=== PATIENT | male | born 1930 | race Caucasian/White ===

== ENCOUNTER 2016-06-14 12:12 | Emergency (ER) | payer OTHER ==
[~2016-06-14] VITALS: Ht 170.2 cm; Wt 82.0 kg
[~2016-06-14 12:12] MED LIST: AMLO5TAB96 PO; DARV PO; GLUCTAB PO; HALC0.25 PO; INDO50CA PO; ZOCO40TA PO
[2016-06-14 12:22] VITALS: BP 136/77; PULSE 77; RESP 18; TEMP 97.4; O2SAT 96
[2016-06-14] MEDS ORDERED: LEVO50TA4 PO (13:18)
[2016-06-14] MEDS ORDERED: PRED5TAB PO (13:18)
[2016-06-14] MEDS ORDERED: MELO-1 PO (13:18)
[2016-06-14] MEDS ORDERED: TRAZ50TA12 PO (13:18)
[2016-06-14] MEDS ORDERED: valACYclovir HCL 500 MG TAB PO ONE (13:45)
[2016-06-14] MEDS ORDERED: VALA1TAB PO (13:46)
[2016-06-14] MEDS ORDERED: GABA100C4 PO (13:46)
--- NOTE | 2016-06-14 13:47 | PD ---
HPI Chief Complaint: Skin Problem Time Seen by Provider: 13:31 Travel History International Travel<30 days: No Contact w/Intl Traveler<30days: No Traveled to known affect area: No History of Present Illness HPI Patient is an 85-year-old male who presents to the chart for evaluation of a rash to his anterior head extending down to his forehead and to the right upper eye lid that started on Tuesday. Patient states pain is burning in nature. He denies any visual changes, tearing, redness in his eye. He further denies any fevers, chills, nausea, vomiting, chest pain or shortness of breath. PFSH Past Medical History Arthritis: Yes Blood Disorders: No Cancer: No Cardiovascular Problems: No Cerebrovascular Accident: Yes Diabetes: Yes Patient Takes Glucophage: No Diminished Hearing: No Endocrine: Yes Genitourinary: Yes Immune Disorder: No Implanted Vascular Access Dvce: Yes Kidney Stones: Yes Musculoskeletal: Yes Neurologic: Yes Psychiatric: No Reproductive: No Respiratory: Yes Influenza Vaccination: Yes ?: Not Past Surgical History Body Medical Devices: LEFT KNEE WITH PLATE Other Surgery: Yes Social History Alcohol Use: No Tobacco Use: No Allergies-Medications (Allergen,Severity, Reaction): Coded Allergies: No Known Allergies (Verified , 06/14/16) Reported Meds & Prescriptions Reported Meds & Active Scripts Active Reported Trazodone (Trazodone HCl) 50 Mg Tab 50 Mg PO HS Prednisone 5 Mg Tab 5 Mg PO DAILY Meloxicam 15 Mg Tab 15 Mg PO DAILY Levothyroxine (Levothyroxine Sodium) 50 Mcg Tab 50 Mcg PO DAILY Review of Systems Except as stated in HPI: all other systems reviewed are Neg General / Constitutional: No: Fever, Chills Eyes: No: Blurred Vision, Redness, Pain, Tearing, Visual changes HENT: No: Headaches Cardiovascular: No: Chest Pain or Discomfort Respiratory: No: Shortness of Breath Musculoskeletal: Positive: Pain Skin: Positive Rash Physical Exam Narrative GENERAL: Well-nourished, well-developed patient. SKIN: Warm and dry. Vesicular lesions noted to the anterior scalp being down to the forehead and to the right upper eyelid. HEAD: Normocephalic. EYES: No scleral icterus. No injection or drainage. Extraocular movements are intact. NECK: Supple, trachea midline. No JVD or lymphadenopathy. CARDIOVASCULAR: Regular rate and rhythm without murmurs, gallops, or rubs. RESPIRATORY: Breath sounds equal bilaterally. No accessory muscle use. GASTROINTESTINAL: Abdomen soft, non-tender, nondistended. MUSCULOSKELETAL: No cyanosis, or edema. BACK: Nontender without obvious deformity. No CVA tenderness. Data Data Last Documented VS Vital Signs Date Time Temp Pulse Resp B/P Pulse Ox O2 Delivery O2 Flow Rate FiO2 06/14/16 12:22 97.4 77 18 136/77 96 [facility] Medical Decision Making Medical Screen Exam Complete: Yes Emergency Medical Condition: Yes Interpretation(s) Vital Signs Date Time Temp Pulse Resp B/P Pulse Ox O2 Delivery O2 Flow Rate FiO2 06/14/16 12:22 97.4 77 18 136/77 96 Differential Diagnosis Herpes zoster versus herpes zoster ophthalmicus versus iritis versus keratitis versus other Narrative Course Patient is an 85-year-old male who presented to emergency for evaluation of a rash to his head that started on Tuesday. Rash is consistent with herpes zoster, the rash does extend to the upper eyelid on the right side. There is no sign of dendritic lesions on fluorescein eye exam. Patient be given first dose of Valtrex now. Patient was advised to take it every 8 hours. He was encouraged to follow-up with his primary doctor in 24-48 hours. Patient was given strict return precautions regarding redness, pain in the eye. He was advised to return to emergency department immediately if he should experience any change in his vision, increased pain in the eye, drainage etc. patient was advised that couldn't be vision threatening if he was not reevaluated. Discussed exam findings with my attending physician as well, he is in agreement with treatment plan. Patient verbalized understanding of these instructions. Patient is stable for discharge. Diagnosis Primary Impression: Herpes zoster Qualified Code: B02.9 - Herpes zoster without complication Referrals: Primary Care Physician 1 day Patient Instructions: General Instructions, Shingles (ED) Additional Instructions: Follow-up with your primary doctor tomorrow Return to emergency department immediately for any new or worsening symptoms, change in vision, eye redness, eye drainage, or new lesions on your nose Take medications as directed Med/Other Pt SpecificInfo: Prescription(s) given Scripts Gabapentin 100 Mg [id number] Mg PO BID PRN (PAIN SCALE 1 TO 10) 10 Days Ref 0 Prov:Fabiola Vasquez 06/14/16 Valacyclovir 1 Gm Tab1,000 Mg PO TID 10 Days Ref 0 Prov:Fabiola Vasquez 06/14/16 Disposition: 01 DISCHARGE HOME Condition: Stable Fabiola Vasquez Jun 14, 2016 13:47
== END 2016-06-14 14:02 | disposition home or self-care (01) ==
LOC: PHED 12:12 → PHEFT 14:02
DX: B02.9 Zoster without complications (principal); E11.9 Type 2 diabetes mellitus without complications; Z87.442 Personal history of urinary calculi
CPT/HCPCS: 99282

== ENCOUNTER → 2016-11-25 | Day surgery (SDC) | payer OTHER ==
[~2016-11-25] MED LIST changes: -AMLO5TAB96 PO; +BUPIVACAINE HCL PF 0.75% 30 ML VIAL ONE; -DARV PO; +GABA100C4 PO; -GLUCTAB PO; -HALC0.25 PO; +HYDROCORTISONE SOD SUCCINATE 100 MG VIAL ONE; -INDO50CA PO; +LACTATED RINGER'S 1000 ML INJ 1,000 ML ONE; +LEVO50TA4 PO; +LIDOCAINE 1.5%/EPINEPHrine 1:200,000 PF SOLN 30 ML AMP ONE; +MELO-1 PO; +MIDAZOLAM HCL 2 MG/2 ML VIAL ONE; +PRED5TAB PO; +PROPOFOL 100 MG/10 ML INJ IV ONE; +TRAZ50TA12 PO; +VALA1TAB PO; -ZOCO40TA PO; +ceFAZolin INJ 1,000 MG VIAL ONE
--- NOTE | 2016-11-26 15:20 | MP ---
cc: ABDULKADIR BLACKBURN M.D. DATE OF SURGERY: 11/25/2016 PREOPERATIVE DIAGNOSIS Right shoulder full-thickness rotator cuff tear and impingement syndrome. POSTOPERATIVE DIAGNOSIS Right shoulder full-thickness rotator cuff tear and impingement syndrome. PROCEDURE Right shoulder arthroscopic rotator cuff repair using Arthrex SpeedBridge technique and an interval slide release in the rotator interval. ANESTHESIA Interscalene block and general. SURGEON Abdulkadir Blackburn MD COATING AND BAKING OPERATOR SURGEON JENNIFER Queen ESTIMATED BLOOD LOSS Minimal. DRAINS None. SPECIMEN None. COMPLICATIONS None known. INDICATION Aakash Nguyen is an adult male with a full-thickness rotator cuff tear and impingement syndrome involving his right shoulder. He has had this condition for some time and we tried treat it nonoperatively. He is markedly limited by the shoulder and based on the failure of conservative management he is offered surgical intervention. The risks and benefits were thoroughly discussed. No guarantees were given. A detailed informed consent was obtained. The occupational therapy assistant, Jarrod Cobos, is an advanced registered nurse practitioner. His skill set was medically necessary for the performance of this operation. DETAILS OF PROCEDURE The patient was given an interscalene block in the pre-op holding area, brought into the operating room and placed under general anesthetic. He was turned into the lateral decubitus position with the right shoulder up with an axillary roll in place. The right shoulder was prepped and draped in the usual sterile fashion. IV antibiotics were given. A timeout was completed. Bony landmarks were drawn out. A three-portal technique was used posteriorly at the soft spot, laterally at the junction of the middle and anterior third of the acromion and accessory anterior portal. A blunt trocar was used to introduce the cannula posteriorly and the first photograph shows fraying along the superior labrum and a complete rupture of the biceps tendon. No evidence of biceps tendon left within the joint. Some mild fraying on the articular surface of the humerus. A second photograph shows the central portion of the humeral head and glenoid which appears fairly normal. We then moved into the subacromial space and identified how large this tear was involving the infraspinatus and the supraspinatus. It was mostly retracted posteriorly. We identified the anterior acromial spur. We took down the footprint to bleeding bone of the infraspinatus and supraspinatus. We then assessed the tear and the tear was more of an L-configuration. The mobility was fair to good but would not anchor tack puller completely anteriorly. We thoroughly debrided the edges and performed bursectomy and performed subacromial decompression and then performed an interval slide release and then proceeded with [id number] sutures in the rotator interval. We then did our SpeedBridge technique with two articular margin biocomposite suture anchors and two laterally placed suture anchors using the standard crisscross technique. It should be noted that we used an additional accessory suture anteriorly. Once we completed the repair multiple photographs were taken showing the final result. We assessed the arm with range of motion and noted excellent stability of the repair and decompression was completed. The arthroscopic equipment was removed. We closed with absorbable sutures. Steri-Strips applied. Sterile dressing applied. The patient was awoken and returned to the recovery room in stable condition. MD BETINA Werner/[place] /2:11 PM /3:08 PM
== END | disposition home or self-care (01) ==
LOC: ESDC 08:56
PROVIDERS: ATTEND Orthopaedic Surgery Sports Medicine
DX: M75.121 Complete rotator cuff tear or rupture of right shoulder, not specified as traumatic (principal); M75.41 Impingement syndrome of right shoulder; S46.211A Strain of muscle, fascia and tendon of other parts of biceps, right arm, initial encounter; Z01.810 Encounter for preprocedural cardiovascular examination
CPT/HCPCS: 01630; 01991; 29826; 29827; 64417; 93005; C1713; J0690; J1720; J2250; J7120